=== PATIENT | female | born 1965 | race Two or more races ===

== ENCOUNTER 2019-11-01 12:11 | Inpatient (IN) | payer OTHER ==
[~2019-11-01] VITALS: Ht 162.6 cm; Wt 85.1 kg
[2019-11-01 13:00] LABS: Urine Bacteria NONE SEEN /hpf (None Seen); Urine Blood Negative /uL (Negative); Urine Mucus FEW (None Seen); Urine Specific Gravity 1.006 (1.001-1.035); Urine WBC <1 /hpf (0 - 5)
[2019-11-01 13:43] LABS: Basophils # (auto) 0.1 10 ^3/uL (0-0.2); Basophils % (auto) 0.9 % (0.0-2.0); Eosinophils # (auto) 0.2 10 ^3/uL (0-0.8); Eosinophils % (auto) 1.9 % (0.0-7.0); Hematocrit 45.7 % (36.0-46.0); Hemoglobin 15.3 g/dL (12.2-16.2); Lymphocytes # (auto) 1.9 10 ^3/uL (0.4-5.4); Lymphocytes % (auto) 17.6 % (10.0-50.0); Mean Corpuscular Hemoglobin 32.4 pg (28.0-32.0); Mean Corpuscular Hgb Conc. 33.5 g/dL (32.0-36.0); Mean Corpuscular Volume 96.5 fL (80.0-100.0); Monocytes # (auto) 0.5 10 ^3/uL (0-1.3); Monocytes % (auto) 4.8 % (0.0-12.0); Neutrophils % (auto) 74.8 % (37.0-80.0); Platelet Count (auto) 309 10^3/uL (140-450); Red Blood Cells 4.74 10^6/uL (4.0-5.20); Red Cell Distribution Width 13.5 % (11.8-14.3); White Blood Cell 10.7 10^3/uL (4.4-10.8)
[2019-11-01 14:03] LABS: Albumin 3.8 g/dL (3.4-5.0); Anion Gap 4 (5-15); Blood Urea Nitrogen 6 mg/dL (7-18); Calcium 9.3 mg/dL (8.5-10.1); Carbon Dioxide 30 mmol/L (21-32); Chloride 102 mmol/L (98-107); Glucose 106 mg/dL (74-106); Lipase 116 U/L (73-393); Magnesium 2.5 mg/dL (1.6-2.6); Potassium 3.6 mmol/L (3.5-5.1); Sodium 136 mmol/L (136-145)
[2019-11-01 14:08] LABS: Alanine Aminotransferase 75 U/L (13-56); Alkaline Phosphatase 105 U/L (45-117); Aspartate Aminotransferase 78 U/L (15-37); BUN/Creatinine Ratio 8.8; Bilirubin, Total 0.7 mg/dL (0.2-1.0); GFR African American 117 mL/min; GFR Non-African American 97 mL/min; Total Protein 8.2 g/dL (6.4-8.2)
[2019-11-01] MEDS ORDERED: SODIUM CHLORIDE 0.9% 1,000 ML IV ONE ×2 (14:58)
[2019-11-01] MEDS ORDERED: VANCOMYCIN 1GM/250ML 250 ML IV ONE (15:00)
[2019-11-01] MEDS ORDERED: levoFLOXacin 500MG 100 ML IV ONE ×2 (15:00→20:15)
[2019-11-01] MEDS ORDERED: TEMAZEPAM 15 MG CAP PO PRN (20:15)
[2019-11-01] MEDS ORDERED: MORPHINE SULF INJ 2 MG/ML SYRINGE 1ML IV PRN (20:15)
[2019-11-01 22:25] VITALS: BP 148/93
--- NOTE | 2019-11-01 22:25 | NUR ---
MS admit from [facility] admitted to tele/MS after SBAR received. Patient oriented to ANDREW PAIGE, RN primary RN, unit, room, bed, and unit policies regarding patient care and visiting hours. Patient weighed by bed scale and encouraged to call if they need something. All questions and concerns addressed, patient verbalized understanding.
[2019-11-01] MEDS: FAMOTIDINE 20 MG TAB PO SCH (23:01)
[2019-11-01] MEDS: metroNIDAZOLE 500MG/100ML 100 ML IV SCH (23:01)
[2019-11-01] MEDS: traMADol HCL 50 MG TAB PO PRN (23:03)
[2019-11-01] MEDS: SODIUM CHLORIDE 0.9% 1,000 ML IV SCH (23:39)
--- NOTE | 2019-11-02 | NUR ---
Reminded patient of [id number] status. Patient verbalized understanding
--- NOTE | 2019-11-02 04:45 | NUR ---
ROUNDS Patient is alert and oriented, no distress noted and patient denies pain.
[2019-11-02 05:00] VITALS: BP 122/76
[2019-11-02] MEDS: metroNIDAZOLE 500MG/100ML 100 ML IV SCH ×3 (05:46→21:32)
[2019-11-02] MEDS: SODIUM CHLORIDE 0.9% 1,000 ML IV SCH ×2 (05:47→12:00)
[2019-11-02 06:43] LABS: Albumin 3.2 g/dL (3.4-5.0); Calcium 8.9 mg/dL (8.5-10.1); Potassium 3.4 mmol/L (3.5-5.1)
[2019-11-02 06:45] LABS: BUN/Creatinine Ratio 8.8
[2019-11-02 06:48] LABS: Bilirubin, Total 0.9 mg/dL (0.2-1.0); Total Protein 7.5 g/dL (6.4-8.2)
--- NOTE | 2019-11-02 07:30 | NUR ---
Opening Shift Note Assumed care of patient, awake and alert. No S/S of distress/SOB or pain. Instructed on POC and to call for assist PRN, will continue to monitor for changes Q1hr and PRN. Fall precautions in place per safety protocol.
[2019-11-02 08:29] VITALS: BP 120/73
[2019-11-02] MEDS: traMADol HCL 50 MG TAB PO PRN ×2 (08:50→19:51)
[2019-11-02] MEDS ORDERED: ENOXAPARIN SOD 40 MG/0.4 ML SYRINGE SC SCH (10:00)
[2019-11-02] MEDS: FAMOTIDINE 20 MG TAB PO SCH ×2 (11:17→21:32)
[2019-11-02] MEDS ORDERED: POTASSIUM CHL 20 Meq TABLET PO ONE (12:00)
--- NOTE | 2019-11-02 12:00 | NUR ---
Hospitalist MD Solis at bedside, aware of patient status. Per MD Solis, he will place patient on a clear liquid diet.
[2019-11-02 12:24] VITALS: BP 118/72
--- NOTE | 2019-11-02 12:58 | NUR ---
Patient covid Negative, therefor will be transferred to room 280B with TODD Chambers. Report given at this time.
--- NOTE | 2019-11-02 13:20 | NUR ---
1315 11/02/19 - Contacted Dr. Solis at [phone] regarding transfer of patient to network facility. Per Provider patient is not currently stable for transfer.
--- NOTE | 2019-11-02 13:21 | NUR ---
Received reports from Cortney BROOKS, patient is a transfer from [facility] after testing negative for COVID19. Patient is alert and oriented, not in respiratory distress. Oriented to floor policy, bed alarm on and side rails up x2, call light within reach. Will continue to monitor.
[2019-11-02 17:00] VITALS: BP 123/89
[2019-11-02] MEDS: PROMETHAZINE HCL 25 MG/ML 1ML IV PRN (19:53)
[2019-11-02] MEDS: levoFLOXacin 500MG 100 ML IV SCH (20:03)
--- NOTE | 2019-11-02 20:19 | NUR ---
Opening Shift Note Assumed care of patient, awake and alert. No S/S of distress/SOB or pain. Instructed on POC and to call for assist PRN, will continue to monitor for changes Q1hr and PRN. Fall precautions in place per safety protocol. Addendum: 11/02/19 at 2211 by MARKO SCHOFIELD RN OPENING NOTE IS FOR THE TIME 1919, 11/02/19
[2019-11-02 22:00] VITALS: BP 131/74
[2019-11-03] MEDS: SODIUM CHLORIDE 0.9% 1,000 ML IV SCH ×3 (01:20→14:24)
[2019-11-03] MEDS: metroNIDAZOLE 500MG/100ML 100 ML IV SCH ×3 (05:30→22:32)
[2019-11-03 05:44] VITALS: BP 109/73
[2019-11-03 06:11] LABS: Calcium 8.9 mg/dL (8.5-10.1); Potassium 3.6 mmol/L (3.5-5.1)
[2019-11-03 06:12] LABS: BUN/Creatinine Ratio 8.5
[2019-11-03 07:19] LABS: Basophils # (auto) 0 10 ^3/uL (0-0.2); Basophils % (auto) 0.4 % (0.0-2.0); Eosinophils # (auto) 0.1 10 ^3/uL (0-0.8); Eosinophils % (auto) 1.6 % (0.0-7.0); Hematocrit 41.1 % (36.0-46.0); Lymphocytes # (auto) 1.8 10 ^3/uL (0.4-5.4); Lymphocytes % (auto) 23.8 % (10.0-50.0); Mean Corpuscular Hemoglobin 32.8 pg (28.0-32.0); Mean Corpuscular Hgb Conc. 34.1 g/dL (32.0-36.0); Mean Corpuscular Volume 96.2 fL (80.0-100.0); Monocytes # (auto) 0.4 10 ^3/uL (0-1.3); Monocytes % (auto) 4.7 % (0.0-12.0); Neutrophils # (auto) 5.4 10 ^3/uL (1.6-8.6); Neutrophils % (auto) 69.5 % (37.0-80.0); Nucleated Red Blood Cells % 0.1 %; Platelet Count (auto) 279 10^3/uL (140-450); Red Blood Cells 4.27 10^6/uL (4.0-5.20); Red Cell Distribution Width 13.2 % (11.8-14.3); White Blood Cell 7.7 10^3/uL (4.4-10.8)
--- NOTE | 2019-11-03 07:35 | NUR ---
Opening Note Report given to power and recovery shift engineer RN. Patient is awake, alert and oriented x4. No signs or symptoms of distress noted at this time. Patient is on room air, respirations even and unlabored. Patient denies pain at this time. Reviewed plan of care with patient, patient verbalized understanding. Bed in low and locked position, call light within reach. Will continue to monitor Q1 hour and PRN.
[2019-11-03 09:00] VITALS: BP 102/65
[2019-11-03] MEDS: FAMOTIDINE 20 MG TAB PO SCH ×2 (11:12→20:58)
[2019-11-03 13:00] VITALS: BP 151/92
--- NOTE | 2019-11-03 14:14 | NUR ---
Dr. Fernandez at bedside Discussing plan of care with patient and this RN. New orders received. Will continue to monitor Q1 hour and PRN.
[2019-11-03 16:53] VITALS: BP 125/79
[2019-11-03] MEDS: PROMETHAZINE HCL 25 MG/ML 1ML IV PRN (18:31)
--- NOTE | 2019-11-03 19:25 | NUR ---
Closing Note Report given to shift supervisor rn RN. No signs or symptoms of distress noted at this time.
[2019-11-03] MEDS: levoFLOXacin 500MG 100 ML IV SCH (20:31)
[2019-11-03 20:56] VITALS: BP 131/75
[2019-11-03] MEDS: ACETAMINOPHEN 500 MG TAB PO PRN (20:58)
[2019-11-04] MEDS: SODIUM CHLORIDE 0.9% 1,000 ML IV SCH ×2 (04:12→18:27)
[2019-11-04 05:00] VITALS: BP 133/69
[2019-11-04] MEDS: metroNIDAZOLE 500MG/100ML 100 ML IV SCH ×3 (06:18→21:34)
--- NOTE | 2019-11-04 06:38 | NUR ---
Closing Note Patient lying in bed, awake and alert. No s/s of distress. Bed in lowest locked position, side rails up x2, call light within reach. Will endorse care to dayshift RN.
--- NOTE | 2019-11-04 07:40 | NUR ---
Opening Note Report given to compilation clerk RN. Patient is awake, alert and oriented x4. No signs or symptoms of distress noted at this time. Patient is on room air, respirations even and unlabored. Patient denies pain at this time. Reviewed plan of care with patient, patient verbalized understanding. Bed in low and locked position, call light within reach. Will continue to monitor Q1 hour and PRN.
[2019-11-04 09:00] VITALS: BP_SYST 118; BP_SYST 147; BP_DIAS 74; BP_DIAS 85
[2019-11-04 09:10] LABS: Albumin 2.9 g/dL (3.4-5.0); Calcium 8.9 mg/dL (8.5-10.1); Potassium 3.6 mmol/L (3.5-5.1)
[2019-11-04 09:16] LABS: BUN/Creatinine Ratio 8.6; Bilirubin, Total 0.4 mg/dL (0.2-1.0); Total Protein 6.8 g/dL (6.4-8.2)
--- NOTE | 2019-11-04 11:40 | NUR ---
Pain Patient complains of headache 10/02 and is requesting Tylenol. Will medicate per orders. Will continue to monitor Q1 hour and PRN.
[2019-11-04] MEDS: ACETAMINOPHEN 500 MG TAB PO PRN (11:42)
[2019-11-04] MEDS: FAMOTIDINE 20 MG TAB PO SCH ×2 (11:42→21:35)
--- NOTE | 2019-11-04 11:51 | NUR ---
Dr. Fernandez at bedside Discussing plan of care with patient and this RN. New orders received to advance diet as tolerated. Will implement new orders. Will continue to monitor Q1 hour and PRN.
[2019-11-04 13:00] VITALS: BP 150/70
--- NOTE | 2019-11-04 13:17 | NUR ---
Ambulating Patient ambulating in hallway unassisted. No complaints of pain or shortness at this time. Will continue to monitor Q1 hour and PRN.
[2019-11-04 18:00] VITALS: BP 150/84
--- NOTE | 2019-11-04 19:05 | NUR ---
Closing Note Report given to shift superintendent caustic cresylate RN. No signs or symptoms of distress noted at this time.
[2019-11-04] MEDS: levoFLOXacin 500MG 100 ML IV SCH (19:51)
[2019-11-04 22:00] VITALS: BP 150/79
[2019-11-05] MEDS: metroNIDAZOLE 500MG/100ML 100 ML IV SCH ×2 (05:30→14:47)
[2019-11-05] MEDS: SODIUM CHLORIDE 0.9% 1,000 ML IV SCH (05:30)
[2019-11-05 05:36] VITALS: BP 144/78
--- NOTE | 2019-11-05 07:21 | NUR ---
report given to dayshift rn patient is awake and alert denies sob distress or pain
--- NOTE | 2019-11-05 07:25 | NUR ---
Opening Shift Note Assumed care of patient, awake and alert. No S/S of distress/SOB or pain. Instructed on POC and to call for assist PRN, will continue to monitor for changes Q1hr and PRN. bed in low position and call light within reach.
[2019-11-05 09:06] VITALS: BP 153/76
[2019-11-05] MEDS: FAMOTIDINE 20 MG TAB PO SCH (10:28)
[2019-11-05 11:43] LABS: Hepatitis B Surface Antibody Negative
[2019-11-05 12:12] LABS: Hepatitis A Total Antibody Negative
[2019-11-05 12:50] LABS: Hepatitis B Core Total AB Negative; Hepatitis B Surface Antigen Negative (Negative); Hepatitis C Antibody Negative (Negative)
[2019-11-05 13:00] VITALS: BP 147/79
[2019-11-05 14:58] VITALS: BP 147/79
--- NOTE | 2019-11-05 16:40 | NUR ---
D/C Discharge instructions given as ordered. Encourage to follow up with PMD as instructed. All questions and concerns addressed. Patient verbalized understanding.IV removed with catheter intact, pressure dressing applied, woodard catheter removed. Patient ambulated to car with all personal belongings, accompanied by staff. No distress noted at time of departure.
[2019-11-05 17:00] VITALS: BP 142/83
== END 2019-11-05 16:40 | disposition home or self-care (01) | DRG 872 ==
LOC: ER 12:11 → OVERFLOW 12:12 → EAST 22:25 → WEST WING 11-02 13:22
PROVIDERS: ADMIT Internal Medicine; ATTEND Internal Medicine
DX: A41.9 Sepsis, unspecified organism (principal); K57.92 Diverticulitis of intestine, part unspecified, without perforation or abscess without bleeding; E66.9 Obesity, unspecified; K76.0 Fatty (change of) liver, not elsewhere classified; F17.210 Nicotine dependence, cigarettes, uncomplicated; Z20.828 Contact with and (suspected) exposure to other viral communicable diseases; Z98.51 Tubal ligation status; Z90.49 Acquired absence of other specified parts of digestive tract; Z88.0 Allergy status to penicillin; Z68.32 Body mass index [BMI] 32.0-32.9, adult
CPT/HCPCS: 36415; 71045; 74176; 76705; 80048; 80053; 80061; 81001; 83036; 83605; 83690; 83735; 84484; 85025; 86704; 86706; 86708; 86803; 87040; 87340; 93005; 96365; G0378; J1956; J3490

== ENCOUNTER 2021-06-23 20:26 | Emergency (ER) | payer SELFPAY ==
[~2021-06-23] VITALS: Ht 162.6 cm; Wt 81.6 kg
[2021-06-23 23:01] LABS: Basophils # (auto) 0.1 10 ^3/uL (0-0.2); Basophils % (auto) 1.5 % (0.0-2.0); Eosinophils # (auto) 0.2 10 ^3/uL (0-0.8); Eosinophils % (auto) 2.8 % (0.0-7.0); Hematocrit 41.6 % (36.0-46.0); Hemoglobin 14.4 g/dL (12.2-16.2); Lymphocytes # (auto) 2.3 10 ^3/uL (0.4-5.4); Lymphocytes % (auto) 40.8 % (10.0-50.0); Mean Corpuscular Hemoglobin 32.6 pg (28.0-32.0); Mean Corpuscular Hgb Conc. 34.6 g/dL (32.0-36.0); Mean Corpuscular Volume 94.3 fL (80.0-100.0); Monocytes # (auto) 0.2 10 ^3/uL (0-1.3); Monocytes % (auto) 3.8 % (0.0-12.0); Neutrophils # (auto) 2.9 10 ^3/uL (1.6-8.6); Neutrophils % (auto) 51.1 % (37.0-80.0); Nucleated Red Blood Cells % 0.1 %; Red Blood Cells 4.41 10^6/uL (4.0-5.20); Red Cell Distribution Width 13.6 % (11.8-14.3); White Blood Cell 5.7 10^3/uL (4.4-10.8)
[2021-06-23 23:21] LABS: BUN/Creatinine Ratio 13.4; Calcium 9.6 mg/dL (8.5-10.1); Potassium 3.4 mmol/L (3.5-5.1)
[2021-06-23 23:23] LABS: Bilirubin, Total 0.2 mg/dL (0.2-1.0); Total Protein 7.8 g/dL (6.4-8.2)
[2021-06-24 02:02] VITALS: BP 136/72
== END 2021-06-24 02:03 | disposition home or self-care (01) ==
LOC: ER 20:28
DX: R04.0 Epistaxis (principal); F17.210 Nicotine dependence, cigarettes, uncomplicated; Z88.0 Allergy status to penicillin
CPT/HCPCS: 36415; 70450; 80053; 85025

== ENCOUNTER 2023-03-17 09:31 | Emergency (ER) | payer OTHER ==
[~2023-03-17] VITALS: Ht 162.6 cm; Wt 84.1 kg
[2023-03-17 09:52] VITALS: BP 152/73; PULSE 59; RESP 18; TEMP 98.1; O2SAT 98
[2023-03-17] MEDS ORDERED: AZIT500T66 PO (10:02)
[2023-03-17] MEDS ORDERED: PROM1SOL4 PO (10:02)
== END 2023-03-17 10:17 | disposition home or self-care (01) ==
LOC: ER 09:31
DX: J20.9 Acute bronchitis, unspecified (principal); F17.210 Nicotine dependence, cigarettes, uncomplicated; Z98.890 Other specified postprocedural states; Z88.8 Allergy status to other drugs, medicaments and biological substances; Z79.899 Other long term (current) drug therapy
CPT/HCPCS: 71045

== ENCOUNTER 2023-09-24 21:31 | Emergency (ER) | payer OTHER ==
[~2023-09-24] VITALS: Ht 162.6 cm; Wt 83.7 kg
[~2023-09-24 21:31] MED LIST: AZIT500T66 PO; PROM1SOL4 PO
[2023-09-24] MEDS: KETOROLAC TROMETH 30 MG/ML 1ML VIAL IM ONE (22:58)
[2023-09-24] MEDS ORDERED: AUG875T PO (23:38)
[2023-09-24] MEDS: HYDROcodone-ACET 10/325MG TAB PO ONE (23:53)
[2023-09-25 00:13] VITALS: BP 157/72; PULSE 75; RESP 20; TEMP 98; O2SAT 96
== END 2023-09-25 00:15 | disposition home or self-care (01) ==
LOC: ER 21:31
DX: J32.9 Chronic sinusitis, unspecified (principal); Z98.890 Other specified postprocedural states; Z79.899 Other long term (current) drug therapy; Z88.0 Allergy status to penicillin
CPT/HCPCS: 70450; 70486; 96372; 99285; J1885

== ENCOUNTER 2023-11-03 20:19 | Emergency (ER) | payer OTHER ==
[~2023-11-03] VITALS: Ht 162.6 cm; Wt 83.3 kg
[~2023-11-03 20:19] MED LIST changes: +AUG875T PO
[2023-11-03 21:36] LABS: Urine Bacteria FEW /hpf (None Seen); Urine Blood Negative /uL (Negative); Urine Clarity Clear (Clear); Urine Color Colorless (Yellow); Urine Protein, UAD Negative (Negative); Urine Specific Gravity 1.004 (1.001-1.035); Urine Urobilinogen Normal (Negative); Urine WBC 1 /hpf (0 - 5)
[2023-11-03 22:54] LABS: Basophils # (auto) 0 10 ^3/uL (0-0.2); Basophils % (auto) 0.6 % (0.0-2.0); Eosinophils # (auto) 0.3 10 ^3/uL (0-0.8); Eosinophils % (auto) 4.1 % (0.0-7.0); Hematocrit 42.3 % (36.0-46.0); Hemoglobin 14.7 g/dL (12.2-16.2); Lymphocytes # (auto) 2.4 10 ^3/uL (0.4-5.4); Lymphocytes % (auto) 36.3 % (10.0-50.0); Mean Corpuscular Hemoglobin 32.7 pg (28.0-32.0); Mean Corpuscular Hgb Conc. 34.8 g/dL (32.0-36.0); Mean Corpuscular Volume 93.9 fL (80.0-100.0); Monocytes # (auto) 0.3 10 ^3/uL (0-1.3); Monocytes % (auto) 5.1 % (0.0-12.0); Neutrophils # (auto) 3.6 10 ^3/uL (1.6-8.6); Neutrophils % (auto) 53.9 % (37.0-80.0); Nucleated Red Blood Cells % 0.1 %; Red Blood Cells 4.51 10^6/uL (4.0-5.20); Red Cell Distribution Width 13.5 % (11.8-14.3); White Blood Cell 6.6 10^3/uL (4.4-10.8)
[2023-11-03 23:06] LABS: Chloride 104 mmol/L (98-107); Potassium 3.5 mmol/L (3.5-5.1); Sodium 138 mmol/L (136-145)
[2023-11-03 23:07] LABS: Anion Gap 7 (5-15); Carbon Dioxide 27 mmol/L (20-30)
[2023-11-03 23:12] LABS: BUN/Creatinine Ratio 7.8 (10.0-20.0); Blood Urea Nitrogen 5 mg/dL (9-23); Glucose 104 mg/dL (74-106)
[2023-11-03] MEDS: MECLIZINE HCL 25 MG TAB PO ONE (23:12)
[2023-11-03] MEDS: KETOROLAC TROMETH 60MG/2ML VIAL IM ONE (23:13)
[2023-11-03 23:18] VITALS: BP 156/73; PULSE 50; RESP 17; TEMP 98; O2SAT 97
[2023-11-04] MEDS ORDERED: IBUP-1456 PO (00:32)
[2023-11-04] MEDS ORDERED: ZOFR4T PO (00:32)
[2023-11-04] MEDS ORDERED: ACE3T PO (00:32)
[2023-11-04] MEDS ORDERED: MECL1TAB42 PO (00:32)
== END 2023-11-04 01:15 | disposition home or self-care (01) ==
LOC: ER 20:19
DX: R51.9 Headache, unspecified (principal); R42 Dizziness and giddiness; I10 Essential (primary) hypertension; Z90.49 Acquired absence of other specified parts of digestive tract; Z98.51 Tubal ligation status
CPT/HCPCS: 36415; 70486; 80048; 81001; 85025; 96372; 99285; J1885; J8597